=== PATIENT | female | born 1960 | race Caucasian/White ===

== ENCOUNTER 2017-01-08 09:36 | Outpatient (CLI) | payer OTHER ==
--- NOTE | 2017-01-08 10:20 | XRay Report ---
Left knee 3 views. History: Knee pain Findings: There are no fractures or other acute findings. Bony mineralization is normal. Impression: No significant findings.
== END 2017-01-08 09:37 | disposition home or self-care (01) ==
LOC: XRAY 09:36
PROVIDERS: ATTEND Family Medicine
DX: M25.562 Pain in left knee (principal)